=== PATIENT | female | born 1990 ===

== ENCOUNTER 2017-04-16 10:59 | Emergency (ER) | payer MEDICAID ==
[2017-04-16 11:14] VITALS: BMI 46.1
[2017-04-16 11:16] VITALS: TEMP 98.2
[2017-04-16] MEDS ORDERED: Alum-Mag Hydrox-Simethicone Susp (30 mL) PO STA (12:02)
[2017-04-16] MEDS ORDERED: Alum-Mag Hydrox-Simethicone Susp (30 mL) ONE (12:09)
[2017-04-16 12:40] LABS: BASO # 0.1 K/uL (0.0-0.2); BASO % 0.7 % (0.0-2.0); EOS # 0.1 K/uL (0.0-0.7); HEMATOCRIT 36.7 % (34.0-47.0); LYMPH # 3.1 K/uL (1.0-4.3); LYMPH % 32.2 % (20.0-40.0); MEAN CELL VOLUME 81.3 fl (81.0-99.0); MEAN CORPUSCULAR HEMOGLOBIN 26.8 pg (27.0-31.0); MEAN PLATELET VOLUME 9.7 fl (7.2-11.7); MONO # 0.4 K/uL (0.0-0.8); MONO % 3.9 % (0.0-10.0); NEUT % 62.2 % (50.0-75.0); NRBC % 0.1 % (0.0-0.0); RED CELL DISTRIBUTION WIDTH 15.6 % (11.5-14.5); WHITE BLOOD COUNT 9.6 K/uL (4.8-10.8)
[2017-04-16 13:21] LABS: BLOOD UREA NITROGEN 15 mg/dl (7-17); CALCIUM 9.3 mg/dL (8.4-10.2); CARBON DIOXIDE 22 mmol/L (22-30); CHLORIDE 107 mmol/L (98-107); GFR AFRICAN-AMERICAN > 60; GLUCOSE,RANDOM 71 mg/dL (65-105); POTASSIUM 4.3 MMOL/L (3.6-5.0); SODIUM 142 mmol/l (132-148); TOTAL PROTEIN 7.6 G/DL (6.3-8.2)
[2017-04-16 13:22] LABS: ALB/GLOB RATIO 1.2 (1.0-2.1); ALKALINE PHOSPHATASE 68 U/L (38-126); ALT/SGPT 16 U/L (9-52); AST/SGOT 19 U/L (14-36); BILIRUBIN,TOTAL 0.4 mg/dl (0.2-1.3); LIPASE 207 U/L (23-300)
--- NOTE | 2017-04-16 13:29 | US ---
HISTORY: epigastric pain COMPARISON: None. TECHNIQUE: Sonographic evaluation of the right upper quadrant of the abdomen. FINDINGS: LIVER: Measures 15.3 cm in length. Normal echogenicity of the liver parenchyma. No mass. No intrahepatic bile duct dilatation. GALLBLADDER: Unremarkable. No gallstones. COMMON BILE DUCT: Measures 2 mm. No stones. No dilatation. PANCREAS: Unremarkable as visualized. No mass. No ductal dilatation. RIGHT KIDNEY: Measures 12.8 cm in length. Normal echogenicity. No calculus, mass, or hydronephrosis. AORTA: No aneurysmal dilatation. IVC: Unremarkable. OTHER FINDINGS: None . IMPRESSION: Unremarkable abdominal ultrasound examination. No evidence cholelithiasis or cholecystitis.
--- NOTE | 2017-04-16 13:46 | ED PDOC ---
HPI: Abdomen Time Seen by Provider: 04/16/17 11:36 Chief Complaint (Nursing): Abdominal Pain Chief Complaint (Provider): Abdominal Pain History Per: Patient History/Exam Limitations: no limitations Outside of [place] travel?: No Current Symptoms Are (Timing): Still Present Location Of Pain/Discomfort: Epigastric Associated Symptoms: denies: Nausea, Vomiting, Back Pain, Urinary Symptoms Additional Complaint(s): Allyssa Chatman, a 27 year old female, presents to the ED complaining of abdominal pain. The patient states that the pain gets worse at night. She states the pain was initially epigastric but now its radiating to both sides of her abdomen at night. Denies lower abdominal pain, back pain, diarrhea, nausea, vomiting, dysuria. PMD: [facility] Past Medical History Reviewed: Historical Data, Nursing Documentation, Vital Signs Vital Signs: Last Vital Signs Temp 98.2 F 04/16/17 11:14 Pulse 78 04/16/17 15:08 Resp 19 04/16/17 15:08 BP 117/68 04/16/17 15:08 Pulse Ox 99 04/16/17 15:08 - Medical History PMH: No Chronic Diseases - Surgical History Surgical History: No Surg Hx - Family History Family History: States: Unknown Family Hx - Immunization History Hx Tetanus Toxoid Vaccination: No Hx Influenza Vaccination: No Hx Pneumococcal Vaccination: No - Home Medications Home Medications: Ambulatory Orders Medication Instructions Recorded Acyclovir 400 mg PO TID #15 tab 12/17/14 Prednisone 2 tab PO DAILY #10 tab 12/17/14 Amoxicillin [Amoxil 500 mg Cap] 500 mg PO BID #20 cap 05/20/15 Naproxen [Naprosyn] 500 mg PO Q12H #20 tab 04/25/16 Ciprofloxacin [Cipro] 500 mg PO BID #14 tab 10/30/16 Ibuprofen [Motrin Tab] 600 mg PO Q6 PRN #15 tab 10/30/16 Famotidine [Pepcid] 20 mg PO DAILY #14 tab 04/16/17 - Allergies Allergies/Adverse Reactions: Allergies Allergy/AdvReac Type Severity Reaction Status Date / Time No Known Allergies Allergy Unverified 05/20/15 09:19 Review of Systems ROS Statement: Except As Marked, All Systems Reviewed And Found Negative Gastrointestinal: Positive for: Abdominal Pain (epigastric). Negative for: Nausea, Vomiting, Diarrhea Genitourinary Female: Negative for: Dysuria Musculoskeletal: Negative for: Back Pain Physical Exam - Reviewed Nursing Documentation Reviewed: Yes Vital Signs Reviewed: Yes - Physical Exam Appears: Positive for: Non-toxic, No Acute Distress Head Exam: Positive for: ATRAUMATIC, NORMAL INSPECTION, NORMOCEPHALIC Skin: Positive for: Normal Color, Warm, Dry. Negative for: Rash Eye Exam: Positive for: Normal appearance, EOMI, PERRL. Negative for: Nystagmus ENT: Positive for: Normal ENT Inspection. Negative for: Pharyngeal Erythema, Tonsillar Swelling Neck: Positive for: Normal, Painless ROM, Supple Cardiovascular/Chest: Positive for: Regular Rate, Rhythm, Chest Non Tender. Negative for: Murmur, Tachycardia Respiratory: Positive for: Normal Breath Sounds. Negative for: Rales, Rhonchi, Wheezing, Respiratory Distress Gastrointestinal/Abdominal: Positive for: Bowel Sounds, Soft, Tenderness ( Epigastric tenderness). Negative for: Guarding, Rebound Back: Positive for: Normal Inspection. Negative for: L CVA Tenderness, R CVA Tenderness Extremity: Positive for: Normal ROM. Negative for: Tenderness, Pedal Edema, Deformity, Swelling Neurologic/Psych: Positive for: Alert, Oriented, Gait - Laboratory Results Result Diagrams: 04/16/17 12:30 04/16/17 12:30 - ECG O2 Sat by Pulse Oximetry: 98 (RA) Pulse Ox Interpretation: Normal - Progress Re-evaluation Time: 15:00 Condition: Re-examined, Improved Medical Decision Making Medical Decision Makin Initial Impression: 27 year old female presenting with abdominal pain Impression: Gastritis vs Pancreatitis vs cholecystitis other conditions considered Initial Plan: * CMP * Lipase * Upreg * Udip * CBC * Lidocaine 2% viscous 15ml PO * Pepcid 20mg IVP * Maalox 30ml PO * US Abdomen Limited * Reevaluation Patient does not have a UTi. Patient is not . 1327 Dictated by: Dr. Paddy Ardon History: Epigastric Pain Comparison: None Findings: Liver: Measures 15.3cm in length. Normal echogenecity of the liver . Parenchyma. No mass. No intrahepatic bile duct dilation. Gallbladder: Unremarkable. no gallstones. Common Bile Duct: Measures 2mm. No stones. No dilation. Pancreas: Unremarkable as visualized. No mass. No ductal dilation. Right Kidney: measures 12.8cm in length. Normal echogenecity. No calculuc, mass or hydronephrosis. Scribe Attestation Documented by Ondina Davies acting as a scribe for An Melendez MD. Provider Attestation All medical record entries made by the Scribe were at my direction and personally dictated by me. I have reviewed the chart and agree that the record accurately reflects my personal performance of the history, physical exam, medical decision making, and the department course for this patient. I have also personally directed, reviewed, and agree with the discharge instructions and disposition. Disposition - Clinical Impression Clinical Impression: Abdominal pain - Patient ED Disposition Is Patient to be Admitted: No Doctor Will See Patient In The: Office Counseled Patient/Family Regarding: Studies Performed, Diagnosis - Disposition Referrals: [facility] [Outside] Disposition: Routine/Home Disposition Time: 15:00 Condition: GOOD Additional Instructions: Return for worsening. Follow up with your PCP in 2-3 days. Prescriptions: Famotidine [Pepcid] 20 mg PO DAILY #14 tab Instructions: Abdominal Pain (ED) Forms: [facility] ED School/Work Excuse
[2017-04-16 15:09] VITALS: BP 117/68; PULSE 78; RESP 19
[2017-04-18 10:24] VITALS: O2SAT 98
== END 2017-04-16 15:09 | disposition home or self-care (01) ==
LOC: H.ER 10:59
DX: R10.13 Epigastric pain (principal)

== ENCOUNTER 2017-12-04 13:17 | Emergency (ER) | payer MEDICAID ==
[2017-12-04 13:17] VITALS: BMI 46.1
[2017-12-04 13:42] VITALS: BP 148/81; PULSE 95; RESP 16; TEMP 98.4; O2SAT 97
--- NOTE | 2017-12-04 15:14 | ED PDOC ---
HPI: Eye Injury/Pain Time Seen by Provider: 12/04/17 14:53 Chief Complaint (Nursing): Eye Problem Chief Complaint (Provider): Eye Irritation and Redness History Per: Patient History/Exam Limitations: no limitations Onset/Duration Of Symptoms: Days (x 1) Current Symptoms Are (Timing): Still Present Additional Complaint(s): Allyssa is a 27 y/o female who presents to the ED complaining of left eye irritation and redness. Patient states she was sent home from work today because they thought she had pink eye. She also admits that her daughter currently has pink eye. PMD: [facility] Past Medical History Reviewed: Historical Data, Nursing Documentation, Vital Signs Vital Signs: Last Vital Signs Temp 98.4 F 12/04/17 13:40 Pulse 95 H 12/04/17 13:40 Resp 16 12/04/17 13:40 BP 148/81 12/04/17 13:40 Pulse Ox 97 12/04/17 13:40 - Family History Family History: States: Unknown Family Hx - Immunization History Hx Tetanus Toxoid Vaccination: No Hx Influenza Vaccination: No Hx Pneumococcal Vaccination: No - Home Medications Home Medications: Ambulatory Orders Medication Instructions Recorded Acyclovir 400 mg PO TID #15 tab 12/17/14 Prednisone 2 tab PO DAILY #10 tab 12/17/14 Amoxicillin [Amoxil 500 mg Cap] 500 mg PO BID #20 cap 05/20/15 Naproxen [Naprosyn] 500 mg PO Q12H #20 tab 04/25/16 Ciprofloxacin [Cipro] 500 mg PO BID #14 tab 10/30/16 Ibuprofen [Motrin Tab] 600 mg PO Q6 PRN #15 tab 10/30/16 Famotidine [Pepcid] 20 mg PO DAILY #14 tab 04/16/17 Ofloxacin Ophth 0.3% [Ocuflox 4 drop OS QID 5 Days #5 ml 12/04/17 Ophth 0.3%] - Allergies Allergies/Adverse Reactions: Allergies Allergy/AdvReac Type Severity Reaction Status Date / Time No Known Allergies Allergy Verified 12/04/17 13:40 Review of Systems ROS Statement: Except As Marked, All Systems Reviewed And Found Negative Eyes: Positive for: Pain, Redness Physical Exam - Reviewed Nursing Documentation Reviewed: Yes Vital Signs Reviewed: Yes - Physical Exam Appears: Positive for: Well, Non-toxic, No Acute Distress Eye Exam: Positive for: Conjunctival injection (left eye) Neurologic/Psych: Positive for: Alert, Oriented - ECG O2 Sat by Pulse Oximetry: 97 (RA) Pulse Ox Interpretation: Normal Medical Decision Making Medical Decision Making: Time: 14:55 Initial Impression: Viral Conjunctivitis in left eye Initial Plan: Scribe Attestation: Documented by Ezio Jolley acting as a scribe for Kevin Pierre PA-C MD Scribe Attestation: All medical record entries made by the Scribe were at my direction and personally dictated by me. I have reviewed the chart and agree that the record accurately reflects my personal performance of the history, physical exam, medical decision making, and the department course for this patient. I have also personally directed, reviewed, and agree with the discharge instructions and disposition. Disposition - Clinical Impression Clinical Impression: Conjunctivitis due to adenovirus, left eye, Conjunctivitis, Eye infection - Patient ED Disposition Is Patient to be Admitted: No Counseled Patient/Family Regarding: Studies Performed, Diagnosis, Need For Followup - Disposition Disposition: Routine/Home Disposition Time: 15:23 Condition: GOOD Prescriptions: Ofloxacin Ophth 0.3% [Ocuflox Ophth 0.3%] 4 drop OS QID 5 Days #5 ml Instructions: Conjunctivitis ([place]), Conjunctivitis ([place]) (DC) Forms: [facility] ([place]), [facility] ED School/Work Excuse
== END 2017-12-04 16:05 | disposition home or self-care (01) ==
LOC: H.ER 13:17
DX: B30.1 Conjunctivitis due to adenovirus (principal)